=== PATIENT | male | born 2000 | race Two or more races ===

== ENCOUNTER 2024-09-25 07:12 | Emergency (ER) | payer MEDICAID ==
[~2024-09-25] VITALS: Ht 177.8 cm; Wt 97.7 kg
[~2024-09-25 07:12] MED LIST: LOPE2CAP16 PO; ONDA-180 PO
--- NOTE | 2024-09-25 08:07 | ED.PDOC ---
GI ASSESSMENT HPI Comments A 24 YEAR OLD MALE PRESENTS TO THE ED WITH COMPLAINT OF NAUSEA AND VOMITING. PATIENT STATES HE HAS BEEN EXPERIENCING NAUSEA AND VOMITING WITH EPIGASTRIC PAIN FOR THE PAST 3 DAYS. PATIENT REPORTS HE CAME TO THIS ED 2 DAYS AGO FOR THE SAME COMPLAINT WHERE A CT SCAN AND LABS WERE DONE ALL OF WHICH WERE NORMAL. PATIENT REPORTS HE RECEIVED IV TREATMENT THE LAST TIME HE WAS HERE 2 DAYS AGO. PATIENT NOTES HE NO LONGER HAS DIARRHEA BUT IS STILL EXPERIENCING EPIGASTRIC PAIN WITH NAUSEA AND VOMITING. PATIENT ALSO NOTES HE HAD THE SAME SYMPTOMS ABOUT 2 YEARS AGO. PATIENT DENIES FEVER, CHILLS, SHORTNESS OF BREATH, CHEST PAIN, HEADACHE, OR OTHER COMPLAINTS. NO OTHER SYMPTOMS OR MODIFYING FACTORS AT THIS TIME. PATIENT IS ALERT, ORIENTED X 4, AND HAS STEADY GAIT. Chief Complaint: Nausea/Vomiting Time Seen by MD: 07:35 Primary Care Provider: UNKNOWN Reviewed Notes: Nurses Notes, Medications, Allergies Allergies: Coded Allergies: NO KNOWN ALLERGIES (Unverified , 09/23/24) Home Meds Active Scripts Pantoprazole Sodium Sesquihydr (Protonix) 40 Mg Tab, 40 MG PO DAILY PRN, #24 TAB Prov:EDDA MELTON 09/25/24 Metoclopramide Hcl (Reglan) 10 Mg Tab, 10 MG PO TID, #30 TAB Prov:EDDA MELTON 09/25/24 Loperamide Hcl (Imodium) 2 Mg Cp, 2 MG PO Q4HP PRN for 7 Days, #30 CAP Prov:RADHA SOLIS MD 09/23/24 Ondansetron HCl (Ondansetron Hydrochloride) 8 Mg Tab, 8 MG PO Q6HP PRN for 10 Days, #40 TAB Prov:RADHA SOLIS MD 09/23/24 Information Source: Patient Mode of Arrival: Ambulatory Timing: Days Duration: Since onset, Days Prehospital treatment: None Quality: Aching, Cramping, Colicky Vomitus: Food Particles Stool: Normal Severity: Moderate Recent: None Recent Hx of: None Pain Location: Epigastric Associated sign and symptoms: Nausea, Vomiting, Abdominal Pain Past Medical History PAST MEDICAL HISTORY: Denies Surgical History: Denies all surgeries Family History Family History: Reviewed,noncontributory to illness Social History Smoker: Non-Smoker Alcohol: Denies ETOH Use Drugs: Denies Drug Use Lives In: Home Constitutional: denies: chills, diaphoresis, fatigue, fever, malaise, sweats, weakness, others EENTM: denies: blurred vision, double vision, ear bleeding, ear discharge, ear drainage, ear pain, ear ringing, eye pain, eye redness, hearing loss, mouth pain, mouth swelling, nasal discharge, nose bleeding, nose congestion, nose pain, photophobia, tearing, throat pain, throat swelling, voice changes, others Respiratory: denies: cough, hemoptysis, orthopnea, SOB at rest, shortness of breath, SOB with excertion, stridor, wheezing, others Cardiovascular: denies: chest pain, dizzy spells, diaphoresis, Dyspnea on exertion, edema, irregular heart beat, left arm pain, lightheadedness, palpitations, PND, syncope, others Gastrointestinal: reports: abdominal pain (EPIGASTRIC PAIN), diarrhea, nausea, vomiting; denies: abdomen distended, blood streaked bowels, constipated, dysp hagia, difficulty swallowing, hematemesis, melena, poor appetite, poor fluid intake, rectal bleeding, rectal pain, others Genitourinary: denies: burning, dysuria, flank pain, frequency, hematuria, incontinence, penile discharge, penile sore, pain, testicle pain, testicle swelling, urgency, others Neurological: denies: dizziness, fainting, headache, left sided numbness, left sided weakness, numbness, paresthesia, pre-existing deficit, right sided numbness, right sided weakness, seizure, speech problems, tingling, tremors, weakness, others Musculoskeletal: denies: back pain, gout, joint pain, joint swelling, muscle pain, muscle stiffness, neck pain, others Integumetry: denies: bruises, change in color, change in hair/nails, dryness, laceration, lesions, lumps, rash, wounds, others Allergic/Immunocompromised: denies: Difficulty Healing, Frequent Infections, Hives, Itching, others Hematologic/Lymphatic: denies: anemia, blood clots, easy bleeding, easy bruising, swollen glands, others Endocrine: denies: excessive hunger, excessive sweating, excessive thirst, excessive urination, flushing, intolerance to cold, intolerance to heat, unexplained weight gain, unexplained weight loss, others Psychiatric: denies: anxiety, bipolar disorder, depression, hopeless, panic disorder, schizophrenia, sleepless, suicidal, others All Other Systems: Reviewed and Negative Physical Exam General Appearance: No Apparent Distress, Normal HEENT: Normal ENT Inspection, PERRL/EOMI, Pharynx Normal, TMs Normal Neck: Full Range of Motion, Non-Tender, Normal, Normal Inspection Respiratory: Chest Non-Tender, Lungs Clear, No Accessory Muscle Use, No Respiratory Distress, Normal Breath Sounds Cardiovascular: No Edema, No JVD, No Murmur, No Gallop, Normal Peripheral Pulses, Regular Rate/Rhythm Breast Exam: Deferred Gastrointestinal: Epigastric, No Organomegaly, No Pulsatile Mass, Normal Bowel Sounds, Soft, Tenderness (EPIGASTRIC, NO GUARDING AND REBOUND TENDERNESS. ) Genitalia: Deferred Pelvic: Deferred Rectal: Deferred Extremities: No calf tenderness, Normal capillary refill, Normal inspection, Normal range of motion, Non-tender, No pedal edema Musculoskeletal : Apperance: Normal Neurologic: Alert, health education aide II-XII nml as Tested, No Motor Deficits, Normal Affect, Normal Mood, No Sensory Deficits Cerebellar Function: Normal Reflexes: Normal Skin: Dry, Normal Color, Warm Peripheral Pulses: 2+ carotid (R), 2+ carotid (L) Lymphatic: No Adenopathy Was a procedure done? Was a procedure done?: No GI differential Dx Differential Diagnosis: Gastritis/PUD, Gastroenteritis, Dehydration, Food Poisoning, Viral X-Ray, Labs, Meds, VS Vital Signs Date Time Temp Pulse Resp B/P (MAP) Pulse Ox O2 Delivery O2 Flow Rate FiO2 09/25/24 09:00 54 18 99 Room Air 09/25/24 09:00 99.0 54 18 147/71 (96) 99 99.0 09/25/24 07:38 98.8 89 20 140/61 (87) 100 Lab Test 09/25/24 08:47 09/25/24 07:40 Range/Units White Blood Count 12.4 H 4.4-10.8 10^3/uL Red Blood Count 5.10 4.5-5.90 10^6/uL Hemoglobin 15.3 13.5-17.5 g/dL Hematocrit 45.9 41.0-53.0 % Mean Corpuscular Volume 89.9 80.0-100.0 fL Mean Corpuscular Hemoglobin 30.0 28.0-32.0 pg Mean Corpuscular Hemoglobin Concent 33.3 32.0-36.0 g/dL Red Cell Distribution Width 13.9 11.8-14.3 % Platelet Count 163 140-450 10^3/uL Mean Platelet Volume 12.5 H 6.9-10.8 fL Neutrophils (%) (Auto) 87.4 H 37.0-80.0 % Lymphocytes (%) (Auto) 7.8 L 10.0-50.0 % Monocytes (%) (Auto) 4.1 0.0-12.0 % Eosinophils (%) (Auto) 0.1 0.0-7.0 % Basophils (%) (Auto) 0.6 0.0-2.0 % Neutrophils # (Auto) 10.8 H 1.6-8.6 10 ^3/uL Lymphocytes # (Auto) 1.0 0.4-5.4 10 ^3/uL Monocytes # (Auto) 0.5 0-1.3 10 ^3/uL Eosinophils # (Auto) 0 0-0.8 10 ^3/uL Basophils # (Auto) 0.1 0-0.2 10 ^3/uL Nucleated Red Blood Cells 0.1 % Sodium Level 144 136-145 mmol/L Potassium Level 3.1 L 3.5-5.1 mmol/L Chloride Level 111 H 98-107 mmol/L Carbon Dioxide Level 21 20-31 mmol/L Anion Gap 12 5-15 Blood Urea Nitrogen 9 9-23 mg/dL Creatinine 0.91 0.700-1.30 mg/dL Glomerular Filtration Rate Calc 121 >90 mL/min BUN/Creatinine Ratio 9.9 L 10.0-20.0 Serum Glucose 139 H 74-106 mg/dL Calcium Level 9.5 8.7-10.4 mg/dL Urine Color Yellow Yellow Urine Clarity Clear Clear Urine pH 6.5 5.0-9.0 Urine Specific [place] 1.027 1.001-1.035 Urine Protein 1+ H Negative Urine Ketones 2+ H Negative Urine Blood Negative Negative /uL Urine Nitrite Negative Negative Urine Bilirubin Negative Negative Urine Urobilinogen Normal Negative mg/dL Urine Leukocyte Esterase Trace Negative /uL Urine RBC 1 0 - 3 /hpf Urine WBC 12 0 - 3 /hpf Urine Squamous Epithelial Cells Few <5 /hpf Urine Bacteria None seen None Seen /hpf Urine Mucus Few None Seen Urine Glucose Normal Normal mg/dL Urine Opiates Screen Neg NEGATIVE Urine Fentanyl Screen Neg NEGATIVE Urine Barbiturates Screen Neg NEGATIVE Urine Phencyclidine Screen Neg NEGATIVE Urine Amphetamines Screen Neg NEGATIVE Urine Benzodiazepines Screen Neg NEGATIVE Urine Cocaine Screen Neg NEGATIVE Urine Cannabinoids Screen Pos NEGATIVE Current Medications Medications (Trade) Dose Ordered Sig/Delbert Route Start Time Stop Time Status Last Admin Sodium Chloride 1,000 ml @ 1,000 mls/hr Q1H ONCE IV 09/25/24 08:00 09/25/24 08:59 DC 09/25/24 08:26 Famotidine (Pepcid Injection) 20 mg ONCE ONCE IV 09/25/24 08:00 09/25/24 08:01 DC 09/25/24 08:44 Ketorolac Tromethamine (Toradol Injection) 30 mg ONCE ONCE IV 09/25/24 08:00 09/25/24 08:01 DC 09/25/24 08:45 Ondansetron HCl (Zofran) 4 mg ONCE ONCE IV 09/25/24 08:00 09/25/24 08:01 DC 09/25/24 08:43 Diphenhydramine HCl (Benadryl Injection) 25 mg ONCE ONCE IV 09/25/24 08:15 09/25/24 08:16 DC 09/25/24 08:43 Ceftriaxone Sodium 50 ml @ 100 mls/hr ONCE ONCE IV 09/25/24 09:30 09/25/24 09:59 DC 09/25/24 09:44 Potassium Chloride (Klor-Con Tablet) 40 meq ONCE ONCE PO 09/25/24 09:30 09/25/24 09:31 DC 09/25/24 10:05 Haloperidol Lactate (Haldol) 5 mg ONCE ONCE IM 09/25/24 10:30 09/25/24 10:31 DC 09/25/24 10:51 Metoclopramide HCl (Reglan Injection) 10 mg ONCE ONCE IV 09/25/24 10:30 09/25/24 10:31 DC 09/25/24 10:57 X-Ray, Labs, Meds, VS Comment LABS ORDERED: CBC, CMP, LIPASE, UA, UDS REVIEWED AND INTERPRETED RESULTS: K 3.1, KETONES 2+, CANNABIS POSITIVE TREATMENT: NS 1 L IV, PEPCID 20 MG IV, ZOFRAN 4 MG IV, TORADOL 30 MG IV, ROCEPHIN 1 G IV, REGLAN 10MG IV, HALDOL 5MG IM PATIENT'S PREVIOUS CHART, LABS, AND IMAGING WERE REVIEWED FROM HIS PREVIOUS VISIT ON 09/23/2024 ALL OF WHICH WERE NORMAL. INDEPENDENT HISTORIANS: NONE PATIENT'S CASE AND RESULTS HAVE BEEN DISCUSSED WITH THE ED ATTENDING PHYSICIAN AND THEY AGREE WITH MY PLAN OF CARE. PATIENT REPORTED FEELING BETTER AFTER RECEIVING IV TREATMENT. I HAVE DISCUSSED LAB RESULTS WITH PATIENT AND HAVE INSTRUCTED HIM TO FOLLOW UP WITH THEIR PCP IN 1-2 DAYS. THE PATIENT FULLY UNDERSTANDS THEIR RESULTS AND ARE AWARE THEY NEED TO FOLLOW UP WITH THEIR PCP FOR FURTHER EVALUATION IF THEIR SYMPTOMS PERSIST. Images Reviewed?: Images reviewed and evaluated by me Time of 1ST Reevaluation: 11:20 Reevaluation 1ST: Improved Patient Education/Counseling: Diagnosis, Treatment, Need For Follow Up Family Education/Counseling: Diagnosis, Treatment, Need For Follow Up Medical Screening: No EMC Exist At This Time Departure 1 Departure Time of Disposition: 11:20 Impression: Primary Impression: Acute gastroenteritis Additional Impression: Cannabinoid hyperemesis syndrome Disposition: HOME / SELF CARE / HOMELESS Condition: Stable Additional Instructions: FOLLOW-UP WITH PCP IN 1 TO 2 DAYS. TAKE MEDICATIONS PRESCRIBED. RETURN TO ED FOR ANY NEW OR WORSENING SYMPTOMS. e-Prescriptions Pantoprazole Sodium Sesquihydr (Protonix) 40 Mg Tab 40 MG PO DAILY PRN, #24 TAB Prov: EDDA MELTON 09/25/24 Metoclopramide Hcl (Reglan) 10 Mg Tab 10 MG PO TID, #30 TAB Prov: EDDA MELTON 09/25/24 Discharged With: Self, Relative Critical Care Note Critical Care Time?: No Stability Stability form required: No I personally scribed for EDDA MELTON ([email or web address]) on 09/25/24 at 08:07. Electronically submitted by Vincenzo Quintanilla ([email or web address]). I personally scribed for EDDA MELTON ([email or web address]) on 09/25/24 at 09:27. Electronically submitted by Vincenzo Quintanilla ([email or web address]). EDDA MELTON Sep 25, 2024 08:07
[2024-09-25] MEDS: SODIUM CHLORIDE 0.9% 1,000 ML IV ONE (08:26)
[2024-09-25] MEDS: ONDANSETRON HCL 4 MG/2 ML VIAL IV ONE (08:43)
[2024-09-25] MEDS: diphenhdrAMINE HCL 50 MG/1 ML VL IV ONE (08:43)
[2024-09-25] MEDS: FAMOTIDINE (10MG/ML) 2ML VL IV ONE (08:44)
[2024-09-25] MEDS: KETOROLAC TROMETH 30 MG/ML 1ML VIAL IV ONE (08:45)
[2024-09-25 08:50] LABS: Urine Bacteria None Seen /hpf (None Seen)
[2024-09-25 08:59] LABS: Basophils # (auto) 0.1 10 ^3/uL (0-0.2); Basophils % (auto) 0.6 % (0.0-2.0); Eosinophils # (auto) 0 10 ^3/uL (0-0.8); Eosinophils % (auto) 0.1 % (0.0-7.0); Hematocrit 45.9 % (41.0-53.0); Hemoglobin 15.3 g/dL (13.5-17.5); Lymphocytes % (auto) 7.8 % (10.0-50.0); Mean Corpuscular Hgb Conc. 33.3 g/dL (32.0-36.0); Mean Corpuscular Volume 89.9 fL (80.0-100.0); Monocytes # (auto) 0.5 10 ^3/uL (0-1.3); Monocytes % (auto) 4.1 % (0.0-12.0); Neutrophils # (auto) 10.8 10 ^3/uL (1.6-8.6); Neutrophils % (auto) 87.4 % (37.0-80.0); Nucleated Red Blood Cells % 0.1 %; Platelet Count (auto) 163 10^3/uL (140-450); Red Cell Distribution Width 13.9 % (11.8-14.3); White Blood Cell 12.4 10^3/uL (4.4-10.8)
[2024-09-25 09:06] LABS: Sodium 144 mmol/L (136-145)
[2024-09-25 09:07] LABS: Anion Gap 12 (5-15); Calcium 9.5 mg/dL (8.7-10.4); Carbon Dioxide 21 mmol/L (20-31)
[2024-09-25 09:08] LABS: Chloride 111 mmol/L (98-107); Potassium 3.1 mmol/L (3.5-5.1)
[2024-09-25 09:12] LABS: BUN/Creatinine Ratio 9.9 (10.0-20.0); Blood Urea Nitrogen 9 mg/dL (9-23)
[2024-09-25 09:13] LABS: Urine Blood Negative /uL (Negative); Urine Clarity Clear (Clear); Urine Color Yellow (Yellow); Urine Mucus FEW (None Seen); Urine Protein, UAD 1+ (Negative); Urine Specific Gravity 1.027 (1.001-1.035); Urine Urobilinogen Normal (Negative); Urine WBC 12 /hpf (0 - 3); Urine pH 6.5 (5.0-9.0)
[2024-09-25 09:21] LABS: Amphetamine Screen, Urine Neg (NEGATIVE); Barbiturate Scree,Urine Neg (NEGATIVE); Benzodiazephine Screen, Urine Neg (NEGATIVE); Cocaine Screen, Urine Neg (NEGATIVE); Opiate Scree,Urine Neg (NEGATIVE); Phencyclidine Screen, Urine Neg (NEGATIVE)
[2024-09-25 09:22] LABS: Cannabinoid Screen, Urine Pos (NEGATIVE)
[2024-09-25 09:22] LABS: Glucose 139 mg/dL (74-106)
[2024-09-25] MEDS: cefTRIAXone 1GM/50ML D5W 50 ML IV ONE (09:44)
[2024-09-25] MEDS: POTASSIUM CHL 20 Meq TABLET PO ONE (10:05)
[2024-09-25] MEDS ORDERED: PANT40TA2 PO (10:48)
[2024-09-25] MEDS ORDERED: METO-281 PO (10:48)
[2024-09-25] MEDS: HALOPERIDOL LACTATE 5 MG/ML INJ VIAL IM ONE (10:51)
[2024-09-25] MEDS: METOCLOPRAMIDE HCL 5MG/ml INJ 2ml VIAL IV ONE (10:57)
[2024-09-25 11:30] VITALS: BP 139/87; PULSE 100; RESP 18; TEMP 98; O2SAT 100
== END 2024-09-25 11:36 | disposition home or self-care (01) ==
LOC: ER 07:12
DX: K52.9 Noninfective gastroenteritis and colitis, unspecified (principal); F12.90 Cannabis use, unspecified, uncomplicated; R11.2 Nausea with vomiting, unspecified; Z79.899 Other long term (current) drug therapy
CPT/HCPCS: 36415; 80048; 80307; 81001; 85025; 96361; 96365; 96372; 96375; 99284; J0696; J1200; J1630; J1885; J2405; J2765; J3490; J7030